=== PATIENT | male | born 1945 | race Caucasian/White ===

== ENCOUNTER 2019-10-04 16:47 | Emergency (ER) | payer MEDICARE, OTHER ==
[~2019-10-04] VITALS: Ht 182.9 cm; Wt 57.1 kg
--- NOTE | 2019-10-04 17:18 | NUR ---
BELONGINGS SECURED IN LOCKER AND ROOM SUPPLIES SECURED BEHIND PULL-DOWN DOORS. ALONG WITH ARRIVING ON A LEGAL HOLD FOR HOMICIDAL IDEATION, PT ADDTIONALLY STATES HE HAS HAD INTERMITTENT NUMBNESS LEFT FACE AND C/O UPSET STOMACH, STATING HE HAS PROBLEMS WITH GERD
[2019-10-04 17:32] LABS: BASOPHILS # (AUTO) 0.04 x10^3/uL (0-0.1); BASOPHILS % (AUTO) 1 % (0-1); EOSINOPHILS # (AUTO) 0.11 x10^3/uL (0-0.4); EOSINOPHILS % (AUTO) 2 % (1-7); LYMPHOCYTES # (AUTO) 1.24 x10^3/uL (1-3.4); LYMPHOCYTES % (AUTO) 19 % (22-44); MD NO; MEAN CORPUSCULAR HEMOGLOBIN 32.7 pg (27.5-34.5); MEAN CORPUSCULAR HGB CONC 34.1 g/dL (33.2-36.2); MEAN CORPUSCULAR VOLUME 95.9 fL (81-97); MEAN PLATELET VOLUME 7.5 fL (7.4-10.4); MONOCYTES # (AUTO) 0.32 x10^3/uL (0.2-0.8); MONOCYTES % (AUTO) 5 % (2-9); NEUTROPHILS # (AUTO) 4.67 x10^3/uL (1.8-6.8); NEUTROPHILS % (AUTO) 73 % (42-75); PLATELET COUNT 206 x10^3/uL (130-400); RED BLOOD COUNT 4.24 x10^6/uL (4.38-5.82); RED CELL DISTRIBUTION WIDTH 14.6 % (9.4-14.8)
[2019-10-04 17:44] LABS: ALBUMIN 4.1 g/dL (3.4-5.0); ANION GAP 12 mmol/L (5-15); CALCIUM 8.8 mg/dL (8.5-10.1); CHLORIDE 106 mmol/L (98-107); CREATININE 1.09 mg/dL (0.7-1.3)
[2019-10-04 17:46] LABS: SALICYLATE LEVEL < 1.7 mg/dL (2.8-20.0)
--- NOTE | 2019-10-04 18:04 | NUR ---
AMBULATED TO BATHROOM WITH ASSIST. PT STATES HE USUALLY USES A CANE TO AMBULATE. PT ANXIOUS ABOUT HIS CAT AND HOW HIS ROOMATE IS DOING AND QUESTIONS ANSWERED ABOUT PROCESS OF BEING ON A HOLD.
[2019-10-04 18:25] LABS: AMPHETAMINE SCREEN, URINE Negative (Negative); BARBITURATE SCREEN, URINE Negative (Negative); BENZODIAZEPINE SCREEN, URINE Negative (Negative); CANNABINOID SCREEN, URINE Negative (Negative); COCAINE SCREEN, URINE Negative (Negative); METHADONE SCREEN, URINE Negative (Negative); OPIATE SCREEN, URINE Negative (Negative)
[2019-10-04] MEDS ORDERED: MAALOX/HYOSCYAMINE/LIDOCAINE 45 ML BTL PO ONE (18:30)
--- NOTE | 2019-10-04 18:44 | NUR ---
Pt report from Carey curtis. This rn to assume care of pt.
[2019-10-04] MEDS ORDERED: MAALOX/HYOSCYAMINE/LIDOCAINE 45 ML BTL ONE (18:52)
[2019-10-04 19:05] VITALS: BP 129/71
--- NOTE | 2019-10-04 19:05 | NUR ---
Medicated per mar. Roller doors in place. Sitter in hallway. Vss.
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
--- NOTE | 2019-10-04 21:11 | NUR ---
Pt becoming apprehensive about L2K process and states "i just want to go home". Easily redirectable and agrees to awaiting sobriety for telepsych. Pt still adamently denies si/hi. "i told you i just goofed."
--- NOTE | 2019-10-04 22:49 | NUR ---
TELEPSYCH PGD AT 5621
--- NOTE | 2019-10-04 23:46 | NUR ---
Telepsych updated on pt. Awaiting consult at this time.
--- NOTE | 2019-10-05 00:11 | NUR ---
Telepsych concluded. Awaiting results.
== END 2019-10-05 01:59 | disposition home or self-care (01) ==
LOC: ED 23:00
DX: R45.850 Homicidal ideations (principal); F10.220 Alcohol dependence with intoxication, uncomplicated; R51 Headache; E78.00 Pure hypercholesterolemia, unspecified; Y90.9 Presence of alcohol in blood, level not specified
CPT/HCPCS: 36415; 80048; 80307; 82040; 85025; 99283

== ENCOUNTER 2020-05-01 15:58 | Inpatient (IN) | payer MEDICARE, OTHER ==
[~2020-05-01] VITALS: Ht 182.9 cm; Wt 59.4 kg
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
[2020-05-01] MEDS ORDERED: SODIUM CHLORIDE FLUSH 10ML SYR IVF ONE (16:30)
[2020-05-01 16:48] LABS: BASOPHILS # (AUTO) 0.02 x10^3/uL (0-0.1); BASOPHILS % (AUTO) 0 % (0-1); EOSINOPHILS % (AUTO) 2 % (1-7); LYMPHOCYTES # (AUTO) 1.27 x10^3/uL (1-3.4); LYMPHOCYTES % (AUTO) 20 % (22-44); MD NO; MEAN CORPUSCULAR HEMOGLOBIN 32.7 pg (27.5-34.5); MEAN CORPUSCULAR HGB CONC 32.4 g/dL (33.2-36.2); MEAN CORPUSCULAR VOLUME 100.9 fL (81-97); MEAN PLATELET VOLUME 7.3 fL (7.4-10.4); MONOCYTES # (AUTO) 0.44 x10^3/uL (0.2-0.8); MONOCYTES % (AUTO) 7 % (2-9); NEUTROPHILS # (AUTO) 4.59 x10^3/uL (1.8-6.8); NEUTROPHILS % (AUTO) 72 % (42-75); PLATELET COUNT 249 x10^3/uL (130-400); RED BLOOD COUNT 4.09 x10^6/uL (4.38-5.82); RED CELL DISTRIBUTION WIDTH 14.9 % (9.4-14.8)
[2020-05-01 16:55] LABS: ALANINE AMINOTRANSFERASE 30 U/L (12-78); ALBUMIN 3.9 g/dL (3.4-5.0); ANION GAP 6 mmol/L (5-15); CHLORIDE 107 mmol/L (98-107); CREATININE 0.99 mg/dL (0.7-1.3)
[2020-05-01 16:57] LABS: ALKALINE PHOSPHATASE 74 U/L (45-117); BILIRUBIN,TOTAL 1.1 mg/dL (0.2-1.0); TOTAL PROTEIN 6.9 g/dL (6.4-8.2)
--- NOTE | 2020-05-01 17:50 | NUR ---
PT resting in bed, call light in reach.
--- NOTE | 2020-05-01 18:59 | NUR ---
assumed care of pt. report from Christine MARQUEZ. pt to be admitted. room ready. attempting to call report
--- NOTE | 2020-05-01 19:02 | NUR ---
report called to Christian MARQUEZ
--- NOTE | 2020-05-01 19:07 | NUR ---
pt updated on POC. awaiting transport to floor
--- NOTE | 2020-05-01 19:10 | NUR ---
pt to floor with transport
[2020-05-01 20:04] VITALS: BP 141/78
[2020-05-02 00:17] VITALS: BP 113/58
[2020-05-02] MEDS ORDERED: HYDROcodone/APAP 5/325 TABLET PO PRN ×2 (02:30→07:30)
[2020-05-02] MEDS ORDERED: LACTATED RINGERS 1,000 ML IV SCH (02:30)
[2020-05-02] MEDS ORDERED: ONDANSETRON 2MG/ML, 2ML IVPush PRN (02:30)
[2020-05-02] MEDS ORDERED: MELATONIN 5 MG TABLET PO PRN (02:30)
[2020-05-02] MEDS ORDERED: ACETAMINOPHEN 325 MG TABLET PO PRN ×3 (02:30→18:00)
[2020-05-02] MEDS ORDERED: ENALAPRILAT 1.25 MG/ML, 2ML IVPush PRN (02:30)
[2020-05-02] MEDS ORDERED: DOCUSATE 100 MG CAPSULE PO PRN (02:30)
[2020-05-02] MEDS ORDERED: LIDODERM 5% PATCH TD PRN (02:30)
[2020-05-02 04:53] LABS: ALANINE AMINOTRANSFERASE 28 U/L (12-78); ALBUMIN 3.9 g/dL (3.4-5.0); ANION GAP 6 mmol/L (5-15); CHLORIDE 110 mmol/L (98-107); CREATININE 0.93 mg/dL (0.7-1.3)
[2020-05-02 04:55] LABS: ALKALINE PHOSPHATASE 61 U/L (45-117); BILIRUBIN,TOTAL 1.3 mg/dL (0.2-1.0); TOTAL PROTEIN 6.7 g/dL (6.4-8.2)
[2020-05-02 04:56] LABS: BASOPHILS # (AUTO) 0.04 x10^3/uL (0-0.1); BASOPHILS % (AUTO) 1 % (0-1); EOSINOPHILS # (AUTO) 0.22 x10^3/uL (0-0.4); EOSINOPHILS % (AUTO) 3 % (1-7); LYMPHOCYTES # (AUTO) 1.11 x10^3/uL (1-3.4); LYMPHOCYTES % (AUTO) 16 % (22-44); MD NO; MEAN CORPUSCULAR HEMOGLOBIN 35.1 pg (27.5-34.5); MEAN CORPUSCULAR HGB CONC 33.8 g/dL (33.2-36.2); MEAN CORPUSCULAR VOLUME 103.8 fL (81-97); MEAN PLATELET VOLUME 7.4 fL (7.4-10.4); MONOCYTES # (AUTO) 0.51 x10^3/uL (0.2-0.8); MONOCYTES % (AUTO) 7 % (2-9); NEUTROPHILS # (AUTO) 5.19 x10^3/uL (1.8-6.8); NEUTROPHILS % (AUTO) 74 % (42-75); PLATELET COUNT 268 x10^3/uL (130-400); RED BLOOD COUNT 3.73 x10^6/uL (4.38-5.82)
[2020-05-02] MEDS ORDERED: HEPARIN 5,000 UNITS/ML, 1ML SQ SCH (07:30)
[2020-05-02 09:01] VITALS: BP 119/73
[2020-05-02 09:08] LABS: INTERNATIONAL NORMALIZED RATIO 1.02 (0.93-1.1); PROTHROMBIN TIME 10.5 Seconds (9.6-11.5)
[2020-05-02 12:25] VITALS: BP 138/73
[2020-05-02 17:16] VITALS: BP 144/75
[2020-05-02] MEDS ORDERED: FENTANYL PF 100 MCG/2ML ONE ×2 (17:39→18:46)
[2020-05-02] MEDS ORDERED: BUPIVACAINE/PF 0.25% ONE (17:47)
[2020-05-02] MEDS ORDERED: EPINEPHRINE 1 MG/ML, 1ML ONE (17:47)
[2020-05-02] MEDS ORDERED: CHLORHEXIDINE 15 ML UDC ONE (17:54)
[2020-05-02] MEDS ORDERED: MIDAZOLAM 1 MG/ML, 2ML IV PRN (18:00)
[2020-05-02] MEDS ORDERED: PROMETHAZINE 25 MG/ML, 1ML IVPush PRN (18:00)
[2020-05-02] MEDS ORDERED: MEPERIDINE/PF 25MG/0.5ML IVPush PRN (18:00)
[2020-05-02] MEDS ORDERED: OXYcodone 5 MG/5 ML ORAL.SOL UDC PO PRN (18:00)
[2020-05-02] MEDS ORDERED: HYDROmorphone 1 MG/ML, 1ML INJ IVPush PRN (18:00)
[2020-05-02] MEDS ORDERED: ALBUTEROL SULFATE 2.5 MG/3 ML NPPB PRN (18:00)
[2020-05-02] MEDS ORDERED: LORazepam 2 MG/ML, 1ML IVPush PRN (18:00)
[2020-05-02] MEDS ORDERED: LABETALOL 5MG/ML, 20ML IV PRN (18:00)
[2020-05-02] MEDS ORDERED: FENTANYL PF 100 MCG/2ML IV PRN (18:00)
[2020-05-02] MEDS ORDERED: hydrALAzine 20 MG/ML, 1ML IV PRN (18:00)
[2020-05-02] MEDS ORDERED: CEFOTETAN 1 GM ONE (18:08)
[2020-05-02] MEDS ORDERED: SUGAMMADEX 200 MG/2 ML IVPush ONE (18:08)
[2020-05-02] MEDS ORDERED: KETOROLAC 30 MG/1 ML ONE (18:08)
[2020-05-02] MEDS ORDERED: ROCURONIUM 10MG/ML,5ML ONE (18:40)
[2020-05-02] MEDS ORDERED: PROPOFOL 10 MG/ML, 20ML ONE (18:40)
[2020-05-02] MEDS ORDERED: DEXAMETHASONE 4 MG/ML, 1ML ONE (18:40)
[2020-05-02] MEDS ORDERED: GLYCOPYRROLATE 0.2MG/1ML, 5ML ONE (18:40)
[2020-05-02] MEDS ORDERED: ONDANSETRON 2MG/ML, 2ML ONE (18:40)
[2020-05-02] MEDS ORDERED: CEFAZOLIN 1,000 MG ONE (18:40)
[2020-05-02] MEDS ORDERED: NEOSTIGMINE 1 MG/ML, 10ML ONE (18:40)
[2020-05-02] MEDS ORDERED: HYDROmorphone 1 MG/ML, 1ML INJ ONE (18:46)
[2020-05-02] MEDS ORDERED: ACETAMINOPHEN 650 MG/20.3 ML UDC ONE (19:05)
[2020-05-02 21:02] VITALS: BP 125/70
[2020-05-03] MEDS ORDERED: LACTATED RINGERS 1,000 ML IV SCH (02:30)
[2020-05-03 03:13] VITALS: BP 125/70
== END 2020-05-02 23:30 | disposition home or self-care (01) | DRG 418 ==
LOC: ED 17:36 → EDIP 18:09 → 3N 19:36
PROVIDERS: ADMIT Internal Medicine; ATTEND Internal Medicine
PROC: 0FT44ZZ Resection of Gallbladder, Percutaneous Endoscopic Approach (ICD-10-PCS; principal; 2020-05-02 17:00)
DX: K80.66 Calculus of gallbladder and bile duct with acute and chronic cholecystitis without obstruction (principal); R64 Cachexia; Z20.828 Contact with and (suspected) exposure to other viral communicable diseases; I10 Essential (primary) hypertension; F41.0 Panic disorder [episodic paroxysmal anxiety]; D75.89 Other specified diseases of blood and blood-forming organs; E78.00 Pure hypercholesterolemia, unspecified; E78.5 Hyperlipidemia, unspecified; F12.90 Cannabis use, unspecified, uncomplicated; I25.10 Atherosclerotic heart disease of native coronary artery without angina pectoris; I25.2 Old myocardial infarction; J44.9 Chronic obstructive pulmonary disease, unspecified; Z95.5 Presence of coronary angioplasty implant and graft
CPT/HCPCS: 36415; J3490; 74181; 80053; 83690; 83735; 85025; 85610; 87635; 88304; G0378; J0171; J0690; J1100; J1644; J1885; J2405; J2704; J2710; J3010; J7120

== ENCOUNTER 2020-05-09 14:56 | Emergency (ER) | payer OTHER ==
[~2020-05-09] VITALS: Ht 182.9 cm; Wt 65.0 kg
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
[2020-05-09] MEDS ORDERED: SODIUM CHLORIDE 0.9% 1,000 ML IV ONE (15:23)
[2020-05-09] MEDS ORDERED: MORPHINE SULFATE 4 MG/ML, 1ML ONE ×2 (15:26→17:07)
[2020-05-09] MEDS ORDERED: ONDANSETRON 2MG/ML, 2ML ONE (15:26)
[2020-05-09] MEDS ORDERED: ONDANSETRON 2MG/ML, 2ML IVPush ONE (15:30)
[2020-05-09] MEDS ORDERED: SODIUM CHLORIDE FLUSH 10ML SYR IVF ONE (15:30)
[2020-05-09] MEDS: MORPHINE SULFATE 4 MG/ML, 1ML IVPush PRN ×2 (15:32→17:23)
[2020-05-09 15:40] LABS: BASOPHILS # (AUTO) 0.03 x10^3/uL (0-0.1); BASOPHILS % (AUTO) 0 % (0-1); EOSINOPHILS # (AUTO) 0.16 x10^3/uL (0-0.4); EOSINOPHILS % (AUTO) 2 % (1-7); LYMPHOCYTES # (AUTO) 1.29 x10^3/uL (1-3.4); LYMPHOCYTES % (AUTO) 15 % (22-44); MD NO; MEAN CORPUSCULAR HEMOGLOBIN 33.3 pg (27.5-34.5); MEAN CORPUSCULAR VOLUME 98.1 fL (81-97); MEAN PLATELET VOLUME 7.8 fL (7.4-10.4); MONOCYTES # (AUTO) 0.45 x10^3/uL (0.2-0.8); MONOCYTES % (AUTO) 5 % (2-9); NEUTROPHILS % (AUTO) 78 % (42-75); PLATELET COUNT 229 x10^3/uL (130-400); RED BLOOD COUNT 4.01 x10^6/uL (4.38-5.82); RED CELL DISTRIBUTION WIDTH 14.7 % (9.4-14.8)
[2020-05-09 15:56] LABS: ALANINE AMINOTRANSFERASE 22 U/L (12-78); ALBUMIN 3.9 g/dL (3.4-5.0); ANION GAP 9 mmol/L (5-15); CALCIUM 9.2 mg/dL (8.5-10.1); CHLORIDE 107 mmol/L (98-107)
[2020-05-09 15:58] LABS: ALKALINE PHOSPHATASE 66 U/L (45-117); BILIRUBIN,TOTAL 0.6 mg/dL (0.2-1.0); CREATININE 1.05 mg/dL (0.7-1.3); TOTAL PROTEIN 7.2 g/dL (6.4-8.2)
[2020-05-09 16:24] LABS: MICROSCOPIC NOT IND
--- NOTE | 2020-05-09 16:31 | NUR ---
PT RESTING IN [facility]. AWAITING CT
--- NOTE | 2020-05-09 17:16 | NUR ---
TASK RN NOTE: AWAITING PT RETURN FROM CT.
--- NOTE | 2020-05-09 17:25 | NUR ---
TASK RN NOTE: PT RETURNED FROM CT. NAD NOTED, REPORTS ELEVATED PAIN AND MEDICATED PER EMAR. SIDE RAILS UP, CALL LIGHT IN REACH. CURTAIN OPEN PER PT REQUEST.
[2020-05-09] MEDS ORDERED: OMNIPAQUE 350 MG/ML, 100ML BOTTLE ONE (17:28)
[2020-05-09 18:06] VITALS: BP 123/67
--- NOTE | 2020-05-09 18:06 | NUR ---
PT RESTING IN [facility]. AWAITING
== END 2020-05-09 18:59 | disposition home or self-care (01) ==
LOC: ED 15:15
DX: R10.11 Right upper quadrant pain (principal); R19.7 Diarrhea, unspecified; I10 Essential (primary) hypertension; E78.5 Hyperlipidemia, unspecified; E78.00 Pure hypercholesterolemia, unspecified; I25.2 Old myocardial infarction; Z90.49 Acquired absence of other specified parts of digestive tract
CPT/HCPCS: 36415; 74177; 80053; 81003; 83605; 83690; 85025; 87040; 93005; 96361; 96374; 96375; 96376; 99285; J2270; J2405; J7030; Q9967

== ENCOUNTER 2020-11-17 02:44 | Inpatient (IN) | payer OTHER ==
[~2020-11-17] VITALS: Ht 182.9 cm; Wt 63.7 kg
[~2020-11-17 02:44] MED LIST: ASPI-963 PO; ATOR-2 PO; BETA1TAB10 PO; CHOL10002 PO; FAMO20TA7 PO; MECO10005 PO; METO25TA91 PO; POTA20TA91 PO; TRIA5PAS10 TP
--- NOTE | 2020-11-17 02:46 | NUR ---
Patient BIBA c/o CP today. Upon EMS eval, patient in afib with RVR at a rate of 200+. EMS admin 6mg Adenosine, 12mg Adenosine with no changes. Patient is in obvious discomfort. Respirations even and unlabored.
[2020-11-17] MEDS ORDERED: DILTIAZEM 5 MG/ML, 5ML ONE (02:48)
[2020-11-17] MEDS ORDERED: DILTIAZEM 5 MG/ML, 5ML IVPush STA (02:50)
--- NOTE | 2020-11-17 02:53 | NUR ---
Currently patient states CP has decreased. C/o dizziness and numbness in left arm.
[2020-11-17] MEDS ORDERED: ASPIRIN 81 MG TABLET CHEW ONE ×2 (02:58→02:59)
[2020-11-17] MEDS ORDERED: ASPIRIN 81 MG TABLET CHEW PO ONE (03:00)
[2020-11-17] MEDS ORDERED: SODIUM CHLORIDE 0.9% 1,000ML IVBOLUS ONE (03:00)
--- NOTE | 2020-11-17 03:05 | NUR ---
patient heart rhythm converted to sinus s/p coughing. repeat EKG ordered.
[2020-11-17 03:06] LABS: BASOPHILS % (AUTO) 1 % (0-1); EOSINOPHILS % (AUTO) 1 % (1-7); LYMPHOCYTES % (AUTO) 20 % (22-44); MEAN CORPUSCULAR HEMOGLOBIN 34.7 pg (27.5-34.5); MEAN CORPUSCULAR HGB CONC 34.1 g/dL (33.2-36.2); MEAN PLATELET VOLUME 7.3 fL (7.4-10.4); MONOCYTES % (AUTO) 7 % (2-9); NEUTROPHILS % (AUTO) 71 % (42-75); PLATELET COUNT 176 x10^3/uL (130-400); RED BLOOD COUNT 3.95 x10^6/uL (4.38-5.82); RED CELL DISTRIBUTION WIDTH 13.8 % (9.4-14.8)
[2020-11-17 03:10] LABS: MD NO
[2020-11-17 03:15] LABS: ALANINE AMINOTRANSFERASE 33 U/L (12-78); ALBUMIN 4.1 g/dL (3.4-5.0); ANION GAP 26 mmol/L (5-15); CALCIUM 9.1 mg/dL (8.5-10.1); CHLORIDE 105 mmol/L (98-107); CREATININE 1.19 mg/dL (0.7-1.3)
[2020-11-17 03:26] LABS: ALKALINE PHOSPHATASE 81 U/L (45-117); BILIRUBIN,TOTAL 1.2 mg/dL (0.2-1.0); TOTAL PROTEIN 7.2 g/dL (6.4-8.2); TROPONIN I < 0.015 ng/mL (0.000-0.045)
--- NOTE | 2020-11-17 03:58 | NUR ---
patient states feeling much better. VSS
[2020-11-17] MEDS ORDERED: POTASSIUM CHLORIDE 20 MEQ TAB.ER.PRT ONE (05:46)
[2020-11-17] MEDS ORDERED: FAMOTIDINE 20 MG TABLET ONE (05:46)
--- NOTE | 2020-11-17 05:59 | NUR ---
Patient medicated per oct. Dissolved Kdur tabs in apple juice for admin.
[2020-11-17] MEDS ORDERED: MAGNESIUM SULFATE/D5W 100 ML IVPB ONE (06:00)
[2020-11-17] MEDS ORDERED: POTASSIUM CHLORIDE 20 MEQ TAB.ER.PRT PO ONE (06:00)
[2020-11-17] MEDS ORDERED: LACTATED RINGERS 1,000 ML IVBOLUS ONE (06:00)
[2020-11-17] MEDS ORDERED: FAMOTIDINE 20 MG TABLET PO ONE (06:00)
--- NOTE | 2020-11-17 06:12 | NUR ---
Lloyd ([facility]) [phone]
[2020-11-17] MEDS ORDERED: MAGNESIUM SULFATE/D5W 100 ML ONE (06:13)
[2020-11-17] MEDS ORDERED: ONDANSETRON 2MG/ML, 2ML IVPush PRN (06:30)
--- NOTE | 2020-11-17 06:45 | NUR ---
Report given to JIMMY Beck. Patient to be transferred to room 508-1.
[2020-11-17] MEDS ORDERED: LORazepam 0.5MG TABLET PO PRN (07:00)
[2020-11-17] MEDS ORDERED: LORazepam 1MG TABLET PO PRN (07:00)
[2020-11-17] MEDS ORDERED: morphine SULFATE 10 MG/ML, 1ML IV PRN (07:00)
[2020-11-17] MEDS ORDERED: LORazepam 2 MG/ML, 1ML IV PRN (07:00)
[2020-11-17] MEDS ORDERED: THIAMINE 200 MG in DEXTROSE 5% 50 ML IVPB ONE (07:00)
[2020-11-17] MEDS ORDERED: ONDANSETRON 2MG/ML, 2ML IV PRN (07:00)
[2020-11-17] MEDS ORDERED: ACETAMINOPHEN 325 MG TABLET PO PRN (07:00)
[2020-11-17] MEDS ORDERED: NITROGLYCERIN 0.4 MG BOTTLE (25 TABS) SL PRN (07:00)
[2020-11-17] MEDS ORDERED: FOLIC ACID 1 MG TABLET PO ONE (07:00)
[2020-11-17] MEDS ORDERED: NITROGLYCERIN 0.4 MG/SPRAY SL PRN (07:00)
[2020-11-17 07:39] VITALS: BP 150/69
[2020-11-17] MEDS: ASPIRIN 81 MG TABLET EC PO SCH (08:23)
[2020-11-17] MEDS: CHOLECALCIFEROL 1,000 UNIT TABLET PO SCH (08:23)
[2020-11-17] MEDS: METOPROLOL SUCCINATE 25 MG TAB.ER.24H PO SCH (08:23)
[2020-11-17] MEDS: CHLORDIAZEPOXIDE 25 MG CAPSULE PO SCH ×4 (08:24→21:03)
[2020-11-17] MEDS: MULTIVITAMINS/MINERALS TABLET PO SCH (08:24)
[2020-11-17] MEDS: SODIUM CHLORIDE FLUSH 10ML SYR IVF SCH ×2 (08:25→21:06)
[2020-11-17] MEDS: ENOXAPARIN 40 MG/0.4 ML SQ SCH (08:25)
[2020-11-17 08:45] LABS: CHOL/HDL RATIO 2.4; CHOLESTEROL, TOTAL 163 mg/dL (140-239); HDL CHOL % 42 % (26-37); HDL CHOLESTEROL (DIRECT) 68 mg/dL (40-60); LDL CHOLESTEROL,CALCULATED 75 mg/dL (54-169); LDL/HDL RATIO 1.1 (0.5-3.0); TRIGLYCERIDES 99 mg/dL (50-200); TROPONIN I 0.064 ng/mL (0.000-0.045); VLDL CHOLESTEROL 20 mg/dL (0-25)
[2020-11-17 10:12] LABS: INTERNATIONAL NORMALIZED RATIO 0.99 (0.93-1.1); PROTHROMBIN TIME 10.6 Seconds (9.6-11.5)
[2020-11-17] MEDS: SUCRALFATE 1 GM/10 ML UDC PO SCH ×3 (11:31→21:03)
[2020-11-17 12:16] VITALS: BP 129/67
[2020-11-17 13:18] LABS: TROPONIN I 0.046 ng/mL (0.000-0.045)
[2020-11-17] MEDS: PANTOPRAZOLE 20MG TABLET PO SCH (16:24)
[2020-11-17 18:19] LABS: TROPONIN I 0.024 ng/mL (0.000-0.045)
[2020-11-17 18:28] VITALS: BP 153/82
[2020-11-17] MEDS: ATORVASTATIN 80 MG TABLET PO SCH (21:03)
[2020-11-17 23:59] LABS: TROPONIN I 0.016 ng/mL (0.000-0.045)
[2020-11-18 00:47] VITALS: BP 134/77
[2020-11-18 05:00] LABS: BASOPHILS % (AUTO) 2 % (0-1); EOSINOPHILS % (AUTO) 3 % (1-7); LYMPHOCYTES % (AUTO) 20 % (22-44); MEAN CORPUSCULAR HGB CONC 34.9 g/dL (33.2-36.2); MEAN PLATELET VOLUME 7.6 fL (7.4-10.4); MONOCYTES % (AUTO) 12 % (2-9); NEUTROPHILS % (AUTO) 64 % (42-75); PLATELET COUNT 120 x10^3/uL (130-400); RED BLOOD COUNT 3.39 x10^6/uL (4.38-5.82); RED CELL DISTRIBUTION WIDTH 13.9 % (9.4-14.8)
[2020-11-18 05:02] LABS: MD NO
[2020-11-18 05:16] LABS: CHLORIDE 105 mmol/L (98-107)
[2020-11-18 05:29] LABS: ALANINE AMINOTRANSFERASE 25 U/L (12-78); ALBUMIN 3.3 g/dL (3.4-5.0); ALKALINE PHOSPHATASE 68 U/L (45-117); ANION GAP 4 mmol/L (5-15); BILIRUBIN,TOTAL 1.3 mg/dL (0.2-1.0); CALCIUM 8.3 mg/dL (8.5-10.1); CREATININE 0.84 mg/dL (0.7-1.3); TOTAL PROTEIN 6.3 g/dL (6.4-8.2); TROPONIN I < 0.015 ng/mL (0.000-0.045)
[2020-11-18] MEDS: PANTOPRAZOLE 20MG TABLET PO SCH ×2 (06:04→16:11)
[2020-11-18] MEDS: CHLORDIAZEPOXIDE 25 MG CAPSULE PO SCH ×4 (06:04→19:58)
[2020-11-18] MEDS: SUCRALFATE 1 GM/10 ML UDC PO SCH ×4 (06:05→19:58)
[2020-11-18] MEDS: ENOXAPARIN 40 MG/0.4 ML SQ SCH (06:18)
[2020-11-18 06:49] VITALS: BP 142/64
[2020-11-18 09:32] VITALS: BP 136/75
[2020-11-18] MEDS: ASPIRIN 81 MG TABLET EC PO SCH (09:34)
[2020-11-18] MEDS: MULTIVITAMINS/MINERALS TABLET PO SCH (09:34)
[2020-11-18] MEDS: METOPROLOL SUCCINATE 25 MG TAB.ER.24H PO SCH (09:34)
[2020-11-18] MEDS: CHOLECALCIFEROL 1,000 UNIT TABLET PO SCH (09:34)
[2020-11-18] MEDS: SODIUM CHLORIDE FLUSH 10ML SYR IVF SCH ×2 (09:35→20:50)
[2020-11-18] MEDS: POTASSIUM PHOSPHATE 44 MEQ in SODIUM CHLORIDE 0.9% 500 ML IV SCH ×2 (10:18→17:54)
[2020-11-18 11:31] LABS: TROPONIN I < 0.015 ng/mL (0.000-0.045)
[2020-11-18 13:45] VITALS: BP 127/78
[2020-11-18 18:00] LABS: TROPONIN I < 0.015 ng/mL (0.000-0.045)
[2020-11-18 18:33] VITALS: BP 149/65
[2020-11-18] MEDS: ATORVASTATIN 80 MG TABLET PO SCH (19:58)
[2020-11-18 23:56] LABS: TROPONIN I < 0.015 ng/mL (0.000-0.045)
[2020-11-19 00:10] VITALS: BP 132/71
[2020-11-19] MEDS: ENOXAPARIN 40 MG/0.4 ML SQ SCH (06:16)
[2020-11-19] MEDS: SUCRALFATE 1 GM/10 ML UDC PO SCH (06:17)
[2020-11-19] MEDS: PANTOPRAZOLE 20MG TABLET PO SCH (06:17)
[2020-11-19 07:10] VITALS: BP 141/80
[2020-11-19] MEDS: CHLORDIAZEPOXIDE 25 MG CAPSULE PO SCH (08:00)
[2020-11-19] MEDS: METOPROLOL SUCCINATE 25 MG TAB.ER.24H PO SCH (09:09)
[2020-11-19] MEDS: MULTIVITAMINS/MINERALS TABLET PO SCH (09:09)
[2020-11-19] MEDS: ASPIRIN 81 MG TABLET EC PO SCH (09:09)
[2020-11-19] MEDS: CHOLECALCIFEROL 1,000 UNIT TABLET PO SCH (09:09)
[2020-11-19] MEDS: SODIUM CHLORIDE FLUSH 10ML SYR IVF SCH (09:14)
[2020-11-19] MEDS ORDERED: APIX5TAB PO (09:22)
== END 2020-11-19 10:28 | disposition home or self-care (01) | DRG 281 ==
LOC: ED 03:08 → EDIP 06:08 → 5SO 07:21 → DCLOUNGE 11-19 10:15
PROVIDERS: ADMIT Hospitalist; ATTEND Internal Medicine
PROC: 5A2204Z Restoration of Cardiac Rhythm, Single (ICD-10-PCS; principal; 2020-11-17)
DX: I48.0 Paroxysmal atrial fibrillation (principal); I21.A1 Myocardial infarction type 2; E87.2 Acidosis; J98.11 Atelectasis; R17 Unspecified jaundice; E87.6 Hypokalemia; E83.42 Hypomagnesemia; D75.89 Other specified diseases of blood and blood-forming organs; E78.00 Pure hypercholesterolemia, unspecified; E78.5 Hyperlipidemia, unspecified; E83.39 Other disorders of phosphorus metabolism; E86.0 Dehydration; F10.229 Alcohol dependence with intoxication, unspecified; J44.9 Chronic obstructive pulmonary disease, unspecified; R74.01 Elevation of levels of liver transaminase levels; I10 Essential (primary) hypertension; I25.10 Atherosclerotic heart disease of native coronary artery without angina pectoris; I25.2 Old myocardial infarction; Z95.5 Presence of coronary angioplasty implant and graft; Z87.891 Personal history of nicotine dependence
CPT/HCPCS: 36415; 71045; 80053; 80061; 80320; 83735; 84100; 84443; 84484; 85025; 85610; 93005; 93306; 96361; 96365; 99291; G0378; J1650; J3411; G0480; J7030; J7040; J7120

== ENCOUNTER 2021-04-07 19:59 | Emergency (ER) | payer OTHER ==
[~2021-04-07] VITALS: Ht 172.7 cm; Wt 71.3 kg
[~2021-04-07 19:59] MED LIST changes: +APIX5TAB PO
[2021-04-07 20:52] LABS: BASOPHILS % (AUTO) 2 % (0-1); EOSINOPHILS % (AUTO) 3 % (1-7); LYMPHOCYTES % (AUTO) 26 % (22-44); MEAN CORPUSCULAR HEMOGLOBIN 33.3 pg (27.5-34.5); MEAN CORPUSCULAR HGB CONC 34.8 g/dL (33.2-36.2); MEAN PLATELET VOLUME 7.7 fL (7.4-10.4); MONOCYTES % (AUTO) 9 % (2-9); NEUTROPHILS % (AUTO) 60 % (42-75); PLATELET COUNT 110 x10^3/uL (130-400); RED BLOOD COUNT 3.72 x10^6/uL (4.38-5.82); RED CELL DISTRIBUTION WIDTH 14.1 % (9.4-14.8)
[2021-04-07 21:04] LABS: ALANINE AMINOTRANSFERASE 40 U/L (12-78); ALBUMIN 3.6 g/dL (3.4-5.0); ANION GAP 8 mmol/L (5-15); CALCIUM 9.3 mg/dL (8.5-10.1); CHLORIDE 110 mmol/L (98-107); CREATININE 0.83 mg/dL (0.7-1.3)
[2021-04-07 21:09] LABS: ALKALINE PHOSPHATASE 72 U/L (45-117); BILIRUBIN,TOTAL 0.8 mg/dL (0.2-1.0); TOTAL PROTEIN 6.7 g/dL (6.4-8.2); TROPONIN I < 0.015 ng/mL (0.000-0.045)
[2021-04-07 21:36] VITALS: BP 137/60
== END 2021-04-07 22:16 | disposition left against medical advice (07) ==
LOC: ED 21:00
DX: R07.89 Other chest pain (principal); R06.00 Dyspnea, unspecified; I10 Essential (primary) hypertension; I25.2 Old myocardial infarction; I25.10 Atherosclerotic heart disease of native coronary artery without angina pectoris
CPT/HCPCS: 36415; 71045; 80053; 84484; 85025; 93005; 99285

== ENCOUNTER 2021-05-09 10:14 | Emergency (ER) | payer OTHER ==
[~2021-05-09] VITALS: Ht 182.9 cm; Wt 65.0 kg
[~2021-05-09 10:14] MED LIST changes: +CHOL-33 PO; -CHOL10002 PO
[2021-05-09] MEDS ORDERED: DILTIAZEM 5 MG/ML, 5ML ONE ×2 (10:24→10:49)
--- NOTE | 2021-05-09 10:25 | NUR ---
PT BIB [facility] WITH C/O L SIDED CHEST PAIN, FOUND TO BE IN RAPID AFIB WITH RVR, HR 150s-160s. DIVERT FROM [facility]. NO HX AFIB PER PT BUT DOES HAVE HX DC WITH STENT. TOOK 81MG ASA THIS AM. IV PLACED BY [facility]. ARRIVES TO ED A&OX4, IN MODERATE DISTRESS D/T CHEST PAIN/PALPITATIONS.
[2021-05-09] MEDS ORDERED: DILTIAZEM 125 MG in SODIUM CHLORIDE 0.9% 100 ML IV SCH (10:30)
[2021-05-09] MEDS ORDERED: SODIUM CHLORIDE 0.9% 1,000ML IVBOLUS ONE (10:30)
[2021-05-09] MEDS ORDERED: SODIUM CHLORIDE FLUSH 10ML SYR IVF ONE (10:30)
[2021-05-09] MEDS ORDERED: DILTIAZEM 5 MG/ML, 5ML IV ONE (10:30)
[2021-05-09] MEDS ORDERED: ASPIRIN 81 MG TABLET CHEW PO ONE (10:30)
--- NOTE | 2021-05-09 10:44 | NUR ---
ERP WAS IN FOR RECHECK. PT'S HR REMAINS IN 150s. CARDIZEM GTT STARTED. Addendum: 05/09/21 at 1046 by HBENSON WILL GIVE SECOND DOSE CARDIZEM IVP.
[2021-05-09] MEDS ORDERED: ASPIRIN 81 MG TABLET CHEW ONE (10:49)
[2021-05-09] MEDS: DILTIAZEM 5 MG/ML, 5ML IV ONE ×2 (10:51→11:00)
[2021-05-09 10:52] LABS: BASOPHILS % (AUTO) 1 % (0-1); EOSINOPHILS % (AUTO) 4 % (1-7); LYMPHOCYTES % (AUTO) 22 % (22-44); MEAN CORPUSCULAR HEMOGLOBIN 33.3 pg (27.5-34.5); MEAN CORPUSCULAR HGB CONC 34.9 g/dL (33.2-36.2); MEAN PLATELET VOLUME 8.1 fL (7.4-10.4); MONOCYTES % (AUTO) 6 % (2-9); NEUTROPHILS % (AUTO) 67 % (42-75); PLATELET COUNT 107 x10^3/uL (130-400); RED CELL DISTRIBUTION WIDTH 14.5 % (9.4-14.8)
[2021-05-09 10:59] LABS: ALBUMIN 3.9 g/dL (3.4-5.0); ANION GAP 13 mmol/L (5-15); CALCIUM 8.8 mg/dL (8.5-10.1); CHLORIDE 108 mmol/L (98-107); CREATININE 0.94 mg/dL (0.7-1.3)
--- NOTE | 2021-05-09 11:00 | NUR ---
2ND DOSE CARDIZEM NOT GIVEN, PT APPEARS TO HAVE CONVERTED BACK TO SINUS RHYTHM 90s-100s. ERP NOTIFIED. TRANSPORTER RADIOLOGY TO OBTAIN REPEAT EKG.
[2021-05-09 11:02] LABS: TROPONIN I < 0.015 ng/mL (0.000-0.045)
--- NOTE | 2021-05-09 11:17 | NUR ---
REPEAT EKG GIVEN TO ERP AND CARDIZEM GTT STOPPED PER ORDERS. PT STATES THE PAIN IN HIS L CHEST HAS GONE DOWN, "I JUST FEEL A TWINGE EVERY NOW AND THEN". IV BOLUS INFUSING. O2 IN PLACE AT 3L NC.
--- NOTE | 2021-05-09 11:45 | NUR ---
ERP IN FOR RECHECK.
[2021-05-09 12:00] VITALS: BP 122/70
--- NOTE | 2021-05-09 12:34 | NUR ---
NEW SHIRT PROVIDED TO PT. D/C INSTRUCTIONS, MEDS & F/U APPT RV'WD WITH PT, HE VERBALIZES UNDERSTANDING. RX GIVEN X1. INSTRUCTED PT TO F/U WITH [facility]. ASSISTED PT OUT OF ED VIA WC. CAB VOUCHER PROVIDED TO PT'S HOME.
== END 2021-05-09 12:34 | disposition home or self-care (01) ==
LOC: ED 10:24
DX: I48.0 Paroxysmal atrial fibrillation (principal); R07.2 Precordial pain; I10 Essential (primary) hypertension; I25.2 Old myocardial infarction; I25.10 Atherosclerotic heart disease of native coronary artery without angina pectoris; E78.5 Hyperlipidemia, unspecified; E78.00 Pure hypercholesterolemia, unspecified; Z90.49 Acquired absence of other specified parts of digestive tract
CPT/HCPCS: 36415; 71045; 80048; 82040; 84443; 84484; 85025; 93005; 96365; 96375; 99285; J7030